=== PATIENT | male | born 1950 | race Hispanic/Latino ===

== ENCOUNTER 2018-02-28 21:29 | Emergency (ER) | payer MEDICARE ==
--- NOTE | 2018-02-28 22:47 | Emergency Department Report ---
ED CPR HPI - General Stated Complaint: CARDIAC ARREST Time Seen by Provider: 02/28/18 21:29 Source: EMS Mode of arrival: Stretcher Limitations: Other (cardiac arrest) - History of Present Illness Initial Comments: 68-year-old man, insulin-dependent diabetic male with hypertension and hypercholesterolemia, found collapsed and unresponsive by family members approximately 2-3 minutes after having last been seen at patient's home. EMS was called, arrived within approximately 5 minutes, although no CPR had been done at home. EMS promptly began CPR, intubated patient with confirmation by color change and Atrophy of tube placement, and found patient with a shockable rhythm, which was shocked 3 times, and with dosing of multiple rounds of epinephrine, as well as a dose of amiodarone. Patient arrived with CPR in progress, with good pulses palpable with compressions, and good breath sounds bilaterally on auscultation with bagging of the patient. Patient was unresponsive, and there were no pulses on check. Cardiac rhythm monitoring showed a near flat baseline with a potential fine ventricular fibrillation, and CPR was begun in emergency department with advanced cardiac life-support. Complaint: found unresponsive (after 3 minutes) -: minute(s) (approximately 20) Place: home Bystander CPR Performed: No AED Applied by Bystander/Auditor Supervisor: No Shock Advised: Yes Number of Shocks Delivered: 2 Downtime Before ACLS Arrival (mins): 5 Initial Findings in the Field: no pulse ROSC in the Field: No Associated Injuries: No Treatments Prior to Arrival: intubation, epinephrine mgs #, amiodarone - Related Data Allergies Allergy/AdvReac Type Severity Reaction Status Date / Time Unable to Assess Allergy Verified 02/16/15 20:22 ED Review of Systems ROS: Stated complaint: CARDIAC ARREST Other details as noted in HPI Comment: Unobtainable due to pts medical conditions ED Past Medical Hx - Past Medical History Hx Hypertension: Yes Hx Diabetes: Yes Additional medical history: high cholesterol, hypothyroidism - Social History Smoking Status: Never Smoker Substance Use Type: None ED Physical Exam - General Limitations: Other (cardiac arrest) - Head Head exam: Present: atraumatic - ENT ENT exam: Present: other (intubated orally) - Respiratory Respiratory exam: Present: other (clear breath sounds bilateral with bagging, equal breath sounds) - Cardiovascular Cardiovascular Exam: Present: other (cardiac arrest, asystole on monitor) - GI/Abdominal GI/Abdominal exam: Present: soft - Rectal Rectal exam: Present: deferred - Extremities Exam Extremities exam: Present: normal inspection - Neurological Exam Neurological exam: Present: other (unresponsive) ED Course - Reevaluation(s) Reevaluation #1: 02/28/18 22:49 Asystole seen on pulse rechecked several times, no pulses on pulse check Reevaluation #2: 02/28/18 22:50 Asystole on pulse check, no cardiac activity seen on pulse check by ultrasound examination of heart ED Medical Decision Making - Medical Decision Making Patient arrived in full cardiac arrest, with 2 episodes of shockable rhythm, but with deterioration after that, and only fine ventricular fibrillation or asystole seen after that with no pulses, and patient ultimately unresponsive to any advanced cardiac life measures, and efforts at further resuscitation terminated at 2137 hrs. for lack of response. Critical care time in (mins) excluding proc time.: 20 Critical care attestation.: If time is entered above; I have spent that time in minutes in the direct care of this critically ill patient, excluding procedure time. ED Disposition Disposition: DC-20 Is pt being admited?: No Does the pt Need Aspirin: No Condition: Stable Referrals: XOCHITL MONSIVAIS MD [Primary Care Provider] - 3-5 Days
== END 2018-03-01 01:11 ==
LOC: ED 21:29
DX: I46.9 Cardiac arrest, cause unspecified (principal); I10 Essential (primary) hypertension; E11.9 Type 2 diabetes mellitus without complications; E78.00 Pure hypercholesterolemia, unspecified; E03.9 Hypothyroidism, unspecified
CPT/HCPCS: 92950